=== PATIENT | female | born 1980 | race American Indian/Alaskan Native ===

== ENCOUNTER 2021-05-07 09:56 | Inpatient (IN) | payer OTHER ==
[2021-05-07 10:43] LABS: Mean Corpuscular HGB Conc 29 % (30-34); Red Blood Count 3.86 M/mm3 (3.65-5.03)
[2021-05-07 12:21] LABS: Hematocrit 23.4 % (30.3-42.9); Hemoglobin 6.8 gm/dl (10.1-14.3); Mean Corpuscular Volume 61 fl (79-97); Platelet Count 119 K/mm3 (140-440); Red Cell Distribution Width 21.9 % (13.2-15.2)
[2021-05-08] MEDS ORDERED: SODIUM CHLORIDE 0.9% 1000 ML 1,000 ML IV SCH (06:00)
[2021-05-08] MEDS ORDERED: SCOPOLAMINE TRANSDERMAL PATCH 72 HR TD NR (06:00)
[2021-05-08] MEDS ORDERED: fentaNYL 100 MCG/2 ML INJ IV PRN (06:00)
[2021-05-08] MEDS ORDERED: ACETAMINOPHEN 500 MG TAB PO SCH (06:00)
[2021-05-08] MEDS ORDERED: MIDAZOLAM 2 MG/2 ML INJ IV NR (06:00)
[2021-05-08] MEDS ORDERED: CELECOXIB 200 MG CAP PO NR (06:00)
[2021-05-08] MEDS ORDERED: GABAPENTIN 300 MG CAP PO NR (06:00)
--- NOTE | 2021-05-08 07:14 | History and Physical Report ---
History of Present Illness Date of examination: 05/08/21 Date of admission: 05/08/2021 Chief complaint: uterine fibroids and vaginal bleeding History of present illness: 40y/o with symptomatic uterine fibroids and menorrhagia. The patient has developed severe anemia secondary to her vaginal bleeding. Pelvic ultrasound demonstrates an enlarged fibroid uterus measuring 15cm with multiple leiomyomas. Endometrial biopsy was performed with benign findings. She has elected for definitive surgical management. Past History Past Medical History: other (anemia; uterine fibroids) Past Surgical History: other (salpingectomy for ectopic ; Uterine fibroid embolization) [employer] History: fibroids Social history: - Obstetrical History : 6 Para: 0 Hx # Term Pregnancies: 0 Number of Pregnancies: 0 Spontaneous Abortions: 2 Induced : 4 Number of Living Children: 0 Medications and Allergies Allergies Allergy/AdvReac Type Severity Reaction Status Date / Time No Known Allergies Allergy Verified 05/06/21 15:53 Home Medications Medication Instructions Recorded Confirmed Last Taken Type No Known Home Medications [No 05/06/21 05/06/21 Unknown History Reported Home Medications] Active Meds: Active Medications Acetaminophen (Acetaminophen 500 Mg Tab) 1,000 mg PO PREOP LANDON Celecoxib (Celecoxib 200 Mg Cap) 200 mg PO PREOP NR Fentanyl (Fentanyl 100 Mcg/2 Ml Inj) 100 mcg IV ONCE PRN PRN Reason: sedation for nerve block Gabapentin (Gabapentin 300 Mg Cap) 300 mg PO PREOP NR Sodium Chloride (Nacl 0.9% 1000 Ml) 1,000 mls @ 100 mls/hr IV DIRECT LANDON Stop: 05/08/21 23:59 Cefazolin Sodium (Ancef/Sterile Water 2 Gm/20 Ml) 2 gm in 20 mls @ 80 mls/hr IV PREOP NR; Protocol Midazolam HCl (Midazolam 2 Mg/2 Ml Inj) 2 mg IV PREOP NR Scopolamine (Scopolamine Transdermal Patch 72 Hr) 1 each TD PREOP NR Review of Systems All systems: negative Constitutional: fatigue, malaise Genitourinary: vaginal bleeding, pelvic pain - Vital Signs Vital signs: Vital Signs Temp Pulse Resp BP Pulse Ox 98.0 F 81 20 144/92 100 05/07/21 09:45 05/07/21 09:45 05/07/21 09:45 05/07/21 09:45 06/22/21 09:45 Temp Pulse Resp BP Pulse Ox 98.0 F 81 20 144/92 100 05/07/21 09:45 05/07/21 09:45 05/07/21 09:45 05/07/21 09:45 05/07/21 09:45 - Physical Exam Breasts: Positive: deferred Cardiovascular: Regular rate Lungs: Positive: Clear to auscultation Uterus: Positive: enlarged Results Result Diagrams: 05/07/21 10:25 Abnormal lab results 05/07/21 Range/Units 10:25 Hgb 6.8 L (10.1-14.3) gm/dl Hct 23.4 L (30.3-42.9) % MCV 61 L (79-97) fl MCH 18 L (28-32) pg MCHC 29 L (30-34) % RDW 21.9 H (13.2-15.2) % Plt Count 119 L (140-440) K/mm3 All other labs normal. Assessment and Plan - Patient Problems (1) Iron deficiency anemia secondary to blood loss (chronic) Status: Acute Plan to address problem: patient scheduled for transfusion preoperatively will proceed with a total abdominal hysterectomy (2) Leiomyoma Status: Acute (3) Menorrhagia Status: Acute
[2021-05-08] MEDS ORDERED: ceFAZolin/Water 2 GM/20 ML 2 GM/20 ML SYRINGE IV NR (08:00)
[2021-05-08] MEDS ORDERED: ONDANSETRON 4 MG/2 ML INJ IV PRN ×2 (09:00→14:59)
[2021-05-08] MEDS ORDERED: BUPIVACAINE/PF (0.25%) 2.5 MG/ML 10 ML VIAL INFILTRATI ONE ×2 (09:04→09:05)
[2021-05-08] MEDS ORDERED: dexAMETHasone 4 MG/ML VIAL ONE (09:17)
[2021-05-08] MEDS ORDERED: cloNIDine/PF 1,000 MCG/10 ML VIAL EP ONE (09:18)
--- NOTE | 2021-05-08 09:21 | Anesthesia Day of Surgery ---
Anesthesia Day of Surgery - Day of Surgery Patient Examined: Yes Patient H&P Reviewed: Yes Patient is NPO: Yes
--- NOTE | 2021-05-08 09:21 | Anesthesia Consultation ---
Anesthesia Consult and Med Hx Date of service: 05/08/21 - Airway Anesthetic Teeth Evaluation: Good ROM Head & Neck: Adequate Mental/Hyoid Distance: Adequate Mallampati Class: Class III Intubation Access Assessment: Possibly Difficult - Pre-Operative Health Status ASA Pre-Surgery Classification: ASA2 Proposed Anesthetic Plan: General Nerve Block: TAP - Pulmonary Hx Smoking: No Hx Respiratory Symptoms: No - Cardiovascular System Hx Hypertension: No - Central Nervous System CVA: No - Endocrine Hx Renal Disease: No Hx Liver Disease: No Hx Insulin Dependent Diabetes: No Hx Non-Insulin Dependent Diabetes: No Hx Thyroid Disease: No - Hematic Hx Anemia: Yes (Hb 6.8; plan for periop pRBC transfusion) - Additional Comments Anesthesia Medical History Comments: No hx anesthetic complications.
[2021-05-08] MEDS ORDERED: SODIUM CHLORIDE 0.9% 500 ML 500 ML ONE (10:34)
[2021-05-08] MEDS ORDERED: SODIUM CHLORIDE 0.9% 500 ML 500 ML IV SCH (10:40)
[2021-05-08] MEDS ORDERED: CITRIC ACID-SOD CITRATE 500 ML IV ONE (10:42)
[2021-05-08] MEDS ORDERED: ROCURONIUM 50 MG/5 ML INJ IV ONE ×2 (11:46→12:32)
[2021-05-08] MEDS ORDERED: HYDROmorphone 1 MG/1 ML INJ ONE (11:46)
[2021-05-08] MEDS ORDERED: LIDOCAINE MPF (2%) 20 MG/1 ML VIAL 5 ML ONE (11:46)
[2021-05-08] MEDS ORDERED: ONDANSETRON 4 MG/2 ML INJ ONE (11:46)
[2021-05-08] MEDS ORDERED: propofoL 200 MG/20 ML VIAL IV ONE (11:47)
[2021-05-08] MEDS ORDERED: SODIUM CHLORIDE 0.9% 1000 ML 1,000 ML ONE ×3 (12:39→14:28)
[2021-05-08] MEDS ORDERED: KETOROLAC 30 MG/1 ML INJ ONE (14:25)
[2021-05-08] MEDS ORDERED: NEOSTIGMINE 10MG/10 ML INJ MDV ONE (14:27)
[2021-05-08] MEDS ORDERED: GLYCOPYRROLATE 0.4 MG/2 ML INJ ONE (14:27)
[2021-05-08] MEDS ORDERED: SODIUM CHLORIDE 0.9% IRR 1,500 ML BOTTLE IR ONE (14:30)
[2021-05-08] MEDS: HYDROmorphone 1 MG/1 ML INJ IV PRN ×2 (14:55→15:12)
--- NOTE | 2021-05-08 14:58 | Operative Report ---
Operative Report Operative Report: Date: May 08, 2021 Preoperative diagnosis: Symptomatic uterine fibroids; severe iron deficiency anemia secondary to chronic blood loss; menorrhagia Postoperative diagnosis: Same as above; pelvic use of disease Procedure: Total abdominal hysterectomy; right salpingectomy; lysis of adhesions Surgeon: Rere Naylor M.D. Paper Wood Cutter: Heather Martinez MD Anesthesia: General tracheal anesthesia Estimated blood loss: 1000 mL Cell Saver replacement: 225 mL Urine output: 350 mL IV fluids: 3000 mL Indication: 40-year-old -0-6-0 with a history of symptomatic uterine fibroids that has subsequently contributed to her iron deficiency anemia with a hemoglobin less than 7 at the time of presentation. The patient was transfused 2 units packed red blood cells preoperatively. Pathology: Uterine fibroids, cervix, right fallopian tube Findings: Markedly enlarged fibroid uterus at the umbilicus. Extensive pelvic adhesions Procedure: The risk and benefits and indications of the procedure were reviewed with the patient and informed consent was obtained the patient was taken to the operating room. The patient was placed in supine position and given general anesthesia. The patient was prepped and draped in a normal sterile fashion. A Pfannenstiel skin incision was made down to the layer of the fascia which was nicked in the midline and extended laterally with the Bovie cautery. Superior aspect of the rectus fascia was grasped with [place] clamps x2 and the rectus musc les off sharply. This was performed in an inferior fashion as well. The rectus muscle in the midline and the peritoneum entered bluntly. The pelvis was examined with the following findings extensive pelvic adhesions. The uterus could not be elevated through the Pfannenstiel and skin incision. There was evidence of bowel adhesions to the lateral aspect of the uterus. The decision was made to convert the incision into a vertical skin incision. The incision was made with the scalpel and extended with the Bovie cautery. The uterus demonstrated evidence of multiple uterine fibroids. 2 Pean clamps were placed on the cornua and used for retraction. The round ligaments on both sides were clamped transected and suture ligated with 0 Vicryl. The Enseal was used to coagulate and transect the tubo-ovarian ligament. The anterior leaf of the broad ligament was then incised with the Enseal along the bladder reflection to the midline from both sides the bladder was then gently dissected off the lower uterine segment and the cervix with a sponge stick. Hemostasis was assured. The uterine vessels were then skeletonized bilaterally clamped with Shavonne clamps transected and suture ligated with 0 Vicryl. The uterosacral ligaments were clamped similarly with the Enseal on both sides transected. Once the blood supply was adequately contained the corpus of the uterus was amputated from the cervix. Straight Shavonne clamps were used to excise the cervix from the vaginal cuff. Straight Z clamps were placed underneath the level of the cervix and the cervix was then amputated from the vaginal cuff. The vaginal cuff edges were closed with a Shavonne fixation stitch and interrupted [id number] stitches in the midline with 0 Vicryl. Attention was turned to the patient's remained the right tube which was excised with the Enseal. The left fallopian tube was surgically absent from a prior ectopic . The pelvis was then copiously irrigated with normal saline. Hemoblast was applied to the surgical sites. All laparotomy sponges and instruments were then removed from the abdomen. MS closure was performed with 0 PDS of the vertical incision. The fascia of the Pfannenstiel incision was closed with 0 Vicryl in a running fashion. The skin was then reapproximated with wojciech. Pressure dressing was applied to the incision. All sponge laps and needle counts were correct x2. Patient was then successfully extubated. The patient was taken to the recovery room in stable condition. Pathology specimen included uterus ,cervix, leiomyoma, right fa llopian tube.
[2021-05-08] MEDS ORDERED: oxyCODONE /ACETAMINOPHEN 5-325MG TAB PO PRN (14:59)
[2021-05-08] MEDS ORDERED: MORPHINE 4 MG/1 ML INJ IV PRN (14:59)
[2021-05-08] MEDS ORDERED: IBUPROFEN 800 MG TAB PO PRN (14:59)
[2021-05-08] MEDS ORDERED: MAGNESIUM HYDROXIDE (MOM) ORAL LIQD UDC PO PRN (14:59)
[2021-05-08] MEDS ORDERED: ACETAMINOPHEN 325 MG TAB PO PRN (14:59)
--- NOTE | 2021-05-08 16:09 | Post Anesthesia Evaluation ---
- Post Anesthesia Evaluation Patient Participated: Yes Airway Patent: Yes Stable Respiratory Function: Yes Nausea/Vomiting: No Temp > 96.8F: Yes Pain Manageable: Yes Adequeate Hydration: Yes Anesthesia Complications: No
[2021-05-08] MEDS: KETOROLAC 30 MG/1 ML INJ IV PRN (17:30)
[2021-05-08] MEDS: D5W/LACTATED RINGERS 1,000 ML IV SCH (17:30)
[2021-05-09] MEDS: D5W/LACTATED RINGERS 1,000 ML IV SCH (01:23)
[2021-05-09] MEDS: KETOROLAC 30 MG/1 ML INJ IV PRN (05:19)
[2021-05-09 05:29] LABS: Hematocrit 21.8 % (30.3-42.9); Hemoglobin 6.7 gm/dl (10.1-14.3)
--- NOTE | 2021-05-09 08:59 | Progress Note ---
Assessment and Plan - Patient Problems (1) Iron deficiency anemia secondary to blood loss (chronic) Current Visit: No Status: Acute Plan to address problem: will transfuse one unit prbc routine postop care (2) Leiomyoma Current Visit: No Status: Acute (3) Menorrhagia Current Visit: No Status: Acute Subjective - Subjective Date of service: 05/09/21 Interval history: Patient is doing well. She has voided after removal of her taylor. Details of surgery explained. Hgb 6.7 will transfuse one unit Patient reports: voiding normally, pain well controlled Objective - Vital Signs Latest vital signs: Vital Signs Temp Pulse Resp BP BP Pulse Ox 05/09/21 07:14 98.0 F 79 18 148/80 100 05/09/21 04:15 98.6 F 74 16 114/72 05/09/21 00:30 98.6 F 86 18 135/73 100 05/08/21 20:20 97.8 F 85 18 139/78 100 05/08/21 16:15 16 05/08/21 15:45 98.5 F 84 16 115/67 100 05/08/21 15:30 79 16 120/66 100 05/08/21 15:15 76 17 108/63 100 05/08/21 15:00 75 16 111/63 100 05/08/21 14:55 77 17 108/60 100 05/08/21 14:50 80 17 118/62 100 05/08/21 14:46 97.6 F 79 16 107/59 100 05/08/21 11:47 98.7 F 76 20 112/71 100 05/08/21 11:26 98.6 F 76 18 111/65 100 05/08/21 10:56 98.3 F 76 18 118/65 100 05/08/21 10:51 98.3 F 74 18 114/69 100 05/08/21 10:41 98.7 F 80 16 123/73 100 05/08/21 10:30 79 18 116/72 100 05/08/21 10:25 80 16 120/78 100 05/08/21 10:20 78 18 112/66 100 05/08/21 10:15 80 16 123/73 100 05/08/21 10:10 79 12 129/83 100 05/08/21 10:05 81 17 139/85 100 05/08/21 10:00 76 16 138/85 100 Intake and Output 05/08/21 05/09/21 05/09/21 22:59 06:59 14:59 Intake Total 300 985.417 Output Total 1850 1000 Balance -1550 -14.583 Intake: IV 985.417 D5lr 1,000 ml @ 125 mls/ 985.417 hr IV DIRECT LANDON Rx#: [id number] Intake, Free Water 300 Output: Urine 1850 1000 Indwelling Catheter 1600 1000 Other: Total, Output Amount 800 1000 Voiding Method Indwelling Catheter # Voids Void 1 - Exam Cardiovascular: Present: Regular rate Lungs: Present: Clear to auscultation Incision: Present: dressed - Labs Labs: Abnormal lab results 05/08/21 05/09/21 Range/Units 08:55 05:03 Hgb 6.7 L (10.1-14.3) gm/dl Hct 21.8 L (30.3-42.9) % Crossmatch See Detail
[2021-05-09] MEDS ORDERED: SODIUM CHLORIDE 0.9% 500 ML 500 ML IV SCH (09:00)
[2021-05-09] MEDS ORDERED: DOCUSATE SODIUM 100 MG CAP PO SCH (10:00)
--- NOTE | 2021-05-09 13:56 | Post Anesthesia Evaluation ---
- Post Anesthesia Evaluation Patient Participated: Yes Airway Patent: Yes Stable Respiratory Function: Yes Nausea/Vomiting: No Temp > 96.8F: Yes Pain Manageable: Yes Adequeate Hydration: Yes Anesthesia Complications: No Block Receding Appropriately: Not Applicable Patient on Ventilator: No Other Comments: Patient denies anesthesia complications.
[2021-05-09 18:58] LABS: Hematocrit 25.6 % (30.3-42.9); Hemoglobin 7.9 gm/dl (10.1-14.3)
[2021-05-10 12:03] VITALS: BP 139/73
--- NOTE | 2021-05-10 12:12 | Progress Note ---
Assessment and Plan - Patient Problems (1) Iron deficiency anemia secondary to blood loss (chronic) Current Visit: No Status: Acute Plan to address problem: Patient doing well Discharge home (2) Leiomyoma Current Visit: No Status: Acute (3) Menorrhagia Current Visit: No Status: Acute Subjective - Subjective Date of service: 05/10/21 Interval history: Patient is doing well. She has voided after removal of her taylor. Patient is tolerating a regular diet and her pain is well controlled. Patient reports: appetite normal, voiding normally, pain well controlled Objective - Vital Signs Latest vital signs: Vital Signs Temp Pulse Resp BP BP Pulse Ox 05/10/21 12:02 98.3 F 85 18 139/73 97 05/10/21 07:35 98.3 F 72 18 130/76 98 05/10/21 04:04 99.2 F 85 20 131/73 97 05/09/21 23:23 98.8 F 76 20 103/54 100 05/09/21 19:45 98.0 F 69 20 138/72 100 05/09/21 17:16 99.0 F 75 18 144/82 98 05/09/21 12:48 97.9 F 78 18 127/73 05/09/21 12:45 86 18 126/78 100 Intake and Output 05/09/21 05/10/21 05/10/21 22:59 06:59 14:59 Intake Total 360 240 Balance 360 240 Intake: Oral 240 Intake, Free Water 360 Other: Total, Intake Amount 240 Voiding Method Toilet # Voids Void 1 1 - Exam Abdomen: Present: normal appearance Incision: Present: normal - Labs Labs: Abnormal lab results 05/08/21 05/09/21 Range/Units 08:55 18:17 Hgb 7.9 L (10.1-14.3) gm/dl Hct 25.6 L (30.3-42.9) % Crossmatch See Detail
--- NOTE | 2021-05-10 12:14 | Discharge Summary ---
Providers - Providers Date of Admission: 05/08/21 08:21 Date of discharge: 05/10/21 Attending physician: ИРИНА CASTLE Primary care physician: TAN CRAIN Hospitalization Reason for admission: other (Uterine fibroids) Procedure: other (Total abdominal hysterectomy) Incision: normal complications: transfusion Discharge diagnosis: other (Uterine fibroids) Hospital course: The patient was admitted for scheduled total abdominal hysterectomy. The paul miller has a history of iron deficiency anemia and received 2 units of blood preoperatively. Her postoperative course was complicated by continued anemia. She received an additional 1 unit of packed red blood cells. Otherwise her postoperative course was uneventful. Condition at discharge: Good Disposition: DC-01 TO HOME OR SELFCARE - Discharge Diagnoses (1) Iron deficiency anemia secondary to blood loss (chronic) Status: Acute (2) Leiomyoma Status: Acute (3) Menorrhagia Status: Acute Plan - Discharge Medications Prescriptions: Ibuprofen [Motrin] 800 mg PO Q8HR PRN #60 tablet PRN Reason: Pain , Severe (7-10) oxyCODONE /ACETAMINOPHEN [Percocet 5/325] 1 tab PO Q6HR PRN #30 tablet PRN Reason: Pain - Provider Discharge Summary Activity: no sex for 6 weeks, no heavy lifting 4 weeks, no strenuous exercise Diet: routine Instructions: routine Additional instructions: [] Smoking cessation referral if applicable(refer to patient education folder for contact #) [] Refer to [facility] Booklet Call your doctor immediately for: * Fever > 100.5 * Heavy vaginal bleeding ( >1 pad per hour) * Severe persistent headache * Shortness of breath * Reddened, hot, painful area to leg or breast * Drainage or odor from incision. * Keep incision clean and dry at all times and follow doctor's instructions regarding bathing/showering Schedule follow-up with Dr. Castle on or Thursday of next week for removal of wojciech - Follow up plan
== END 2021-05-10 13:00 | disposition home or self-care (01) | DRG 743 ==
LOC: 3A 09:56 → UNDOADMIN 09:56 → 3A 05-08 08:21 → OB 05-08 15:11
PROVIDERS: ADMIT Obstetrics & Gynecology; ATTEND Obstetrics & Gynecology
PROC: 0UT90ZZ Resection of Uterus, Open Approach (ICD-10-PCS; principal; 2021-05-08)
PROC: 0DNW0ZZ Release Peritoneum, Open Approach (ICD-10-PCS; 2021-05-08)
PROC: 0UB50ZZ Excision of Right Fallopian Tube, Open Approach (ICD-10-PCS; 2021-05-08)
PROC: 30233N1 Transfusion of Nonautologous Red Blood Cells into Peripheral Vein, Percutaneous Approach (ICD-10-PCS; 2021-05-08)
DX: D25.9 Leiomyoma of uterus, unspecified (principal); D50.0 Iron deficiency anemia secondary to blood loss (chronic); N92.0 Excessive and frequent menstruation with regular cycle; Z20.822 Contact with and (suspected) exposure to COVID-19; K66.0 Peritoneal adhesions (postprocedural) (postinfection)
CPT/HCPCS: 36415; 36430; 64450; 84703; 85014; 85018; 85027; 86850; 86900; 86901; 86920; 88302; 88307; G0378; J0735; J1100; J1170; J1885; J2250; J2270; J2405; J2704; J2710; J3010; J7030; J7040; J7121; P9016; U0003